=== PATIENT | female | born 1950 | race Caucasian/White ===

== ENCOUNTER 2018-07-18 08:13 | Inpatient (IN) ==
[~2018-07-18 08:13] MED LIST: MORPHINE SULFATE 15 MG TABLET.SA PO PRN; TRANEXAMIC ACID 1,000 MG in NORMAL SALINE 100 ML IV PRN; ceFAZolin SODIUM 1 GM VIAL IV PRN
[2018-07-18] MEDS: RINGER'S SOLUTION,LACTATED 1,000 ML IV PRN ×2 (09:34→12:35)
--- NOTE | 2018-07-18 11:17 | ANES ---
Anesthesia Pre Procedure Eval Vitals/Labs: Last Vital Signs Temp 36.7 C 07/18/18 08:38 Pulse 69 07/18/18 08:38 Resp 18 07/18/18 08:38 BP 161/70 H 07/18/18 08:38 Pulse Ox 100 07/18/18 08:38 HOME MEDICATIONS Cyanocobalamin (Vitamin B-12) [Vitamin B-12] 500 mcg PO DAILY 01/11/15 [Last Taken 07/17/18] Fexofenadine HCl [Radha Allergy] 180 mg PO HS 01/11/15 [Last Taken 07/17/18] Multivitamins [Multivitamin Joslyn] 1 cap PO DAILY 01/11/15 [Last Taken 07/17/18] Albuterol Sulfate [Ventolin HFA] 2 puff IH Q4H PRN 06/08/17 [Last Taken Unknown] metoprolol succinate ER 25 mg tablet,extended release 24 hr 25 mg PO DAILY #90 tab 10/07/17 [Last Taken 07/18/18] carbamazepine 100 mg chewable tablet See Rx Instructions .ROUTE .COMPLEX #90 tab 11/24/17 [Last Taken 07/17/18] venlafaxine ER 150 mg capsule,extended release 24 hr 300 mg PO DAILY #180 cap 04/04/18 [Last Taken 07/17/18] bupropion HCl XL 300 mg 24 hr tablet, extended release 300 mg PO QAM #90 tab 04/08/18 [Last Taken 07/17/18] lorazepam 2 mg tablet 2 mg PO TID PRN #270 tab 05/06/18 [Last Taken 07/17/18] levothyroxine 100 mcg tablet 100 mcg PO 1700 #90 tab 06/14/18 [Last Taken 07/17/18] ibuprofen 200 mg tablet 800 mg PO TID PRN tab 06/30/18 [Last Taken 08/02/17] pravastatin 40 mg tablet 40 mg PO DAILY #90 tab 07/05/18 [Last Taken 07/17/18] losartan 50 mg tablet 50 mg PO DAILY #90 tab 07/11/18 [Last Taken 07/18/18] Gabapentin [Neurontin] 2,100 mg PO DAILY 07/18/18 [Last Taken 07/17/18] Allergies/Adverse Reactions: Allergies Allergy/AdvReac Type Severity Reaction Status Date / Time erythromycin base AdvReac Mild Nausea Verified 07/06/18 10:07 [Erythromycin Base] simvastatin AdvReac Mild Muscle Pain Verified 07/06/18 10:07 [email or web address] Allergy Intermediate hives Uncoded 07/18/18 08:56 - Planned Procedure Planned Procedure: RT Arthroplasty Total Shoulder Reverse Medication List Reviewed:: Yes Allergies Verified: Yes Medical History (Updated 07/18/18 @ 08:56 by Liliana Spring, CHAVA) Major depression (Chronic) Generalized anxiety disorder (Chronic) BiPAP (biphasic positive airway pressure) dependence Wears glasses severe seasonal allergies Shoulder pain, right Allergic rhinitis Anxiety Back pain COPD (chronic obstructive pulmonary disease) Onset Date: ~2018 Carpal tunnel syndrome Cholelithiasis Depression GERD (gastroesophageal reflux disease) Gastric ulcer Headache Hernia Hyperlipidemia Hypertension Hypoglycemia Hypothyroidism Knee pain Major depressive disorder Osteoarthritis Sciatica Sinusitis, chronic Sleep apnea Candidiasis of genitalia in female Surgical History (Updated 07/18/18 @ 08:54 by Liliana Spring RN) History of deviated nasal septum History of tonsillectomy and adenoidectomy Status post left foot surgery history of rectal fistula repair History of hemiarthroplasty of left shoulder Onset Date: ~12/22/11 DR. Cooley and RCR prior to that date unknown Dr. Zimmer History of shoulder surgery Onset Date: Unknown right RCR Dr. Zimmer Carpal tunnel syndrome R side Ganglion cyst L breast H/O section H/O dilation and curettage History of appendectomy History of arthroscopic knee surgery History of nasal surgery History of rectal surgery History of total knee replacement bilateral Hx of cholecystectomy Rotator cuff injury bilateral S/P gastroplasty Family History (Last Reviewed 07/18/18 @ 11:16 by Jack Dobbins CRNA) Grandfather Arrhythmia Hyperlipemia Hypertension maternal and paternal Aunt Diabetes Hypercholesteremia Hyperlipemia Hypothyroidism Hypertension Father Diabetes Abdominal aortic aneurysm Arrhythmia Depression Heart disease Hyperlipemia Peripheral artery disease Hypertension CVA (cerebral vascular accident) Grandmother Joint disorder Alzheimers disease Hypothyroidism Hypertension maternal and paternal Mother Cataracts, both eyes Joint disorder Diabetes Arrhythmia Heart disease Hypercholesteremia Hyperlipemia Hypertension Uncle Diabetes Hypercholesteremia Hyperlipemia Hypertension Sister Graves disease Gout Hypercholesteremia Hyperlipemia Hypothyroidism Daughter Hypothyroidism Heart murmur Kidney stones Depression Anxiety Son Heart murmur Kidney stones Son Fatty liver - Family Anesthesia History Family History:: no untoward family reactions to anesthesia, no familial bleeding tendencies, no family history of clotting disorders, no family history of premature - Airway/Neck/Teeth Within Normal Limits:: Yes Teeth Condition: intact Mallampatti Score: 3 Thyromental (T-M) distance: > 6 cm Mandibulo Hyoid distance: > 3 cm - Respiratory Respiratory History: CPAP/BiPAP home use Respiratory Physical: lungs clear Smoking Status: Former smoker Discussed smoking cessation including day of surgery: No Sleep Apnea currently treated: Yes Sleep Apnea by current assessment: No Discussed Risks/Treatment of MOUSTAPHA: No - Cardiovascular Tolerate Activity: Fair Heart Sounds: S1 & S2, Regular - Anesthesia Assessment and Plan ASA Class: PS, III Anesthesia Type Plan: General LMA, Block - Right interscalene nerve block for postop analgesia
[2018-07-18] MEDS ORDERED: MORPHINE SULFATE 2 MG/ML DISP.SYRIN IV PRN (13:40)
[2018-07-18] MEDS ORDERED: ACETAMINOPHEN 500 MG TABLET PO PRN (13:40)
[2018-07-18] MEDS ORDERED: MAGNESIUM HYDROXIDE 30 ML UDC PO PRN (13:40)
[2018-07-18] MEDS ORDERED: DEXTROSE 5%-LACTATED RINGERS 1,000 ML IV PRN (13:40)
[2018-07-18] MEDS ORDERED: MAG HYDROX/ALUMINUM HYD/SIMETH 30 ML UDC PO PRN (13:40)
[2018-07-18] MEDS ORDERED: ONDANSETRON HCL/PF 2 MG/ML VIAL IV PRN (13:40)
[2018-07-18] MEDS ORDERED: ZOLPIDEM TARTRATE 5 MG TABLET PO PRN (13:40)
[2018-07-18] MEDS ORDERED: diphenhydrAMINE HCL 50 MG/ML VIAL IV PRN (13:40)
--- NOTE | 2018-07-18 13:40 | OR ---
Operative Report - Dictated Report Narrative: DATE OF PROCEDURE: 07/18/2018 PHYSICIAN: Mauricio Cooley MD CAREER SERVICES ASSISTANT: Goran Levine PA-C (provided and essential set of skilled, educated hands that assisted with transfer, positioning, prepping, draping, manipulation, retraction, placement of implants, irrigation, closure wounds, and application of dressings all which cannot be performed by the available surgical crew) PREOPERATIVE DIAGNOSIS: Right rotator cuff deficient shoulder arthrosis. POSTOPERATIVE DIAGNOSIS: Right rotator cuff deficient shoulder arthrosis. OPERATIONS AND PROCEDURES: Right reverse total shoulder arthroplasty. ANESTHESIA: General plus regional. COMPLICATIONS: None. DRAINS: None. SPECIMENS: Bone. ESTIMATED BLOOD LOSS: 100 mL. RETAINED IMPLANTS: 1. DePuy Delta Xtend cementless metaglene. 2. Delta Xtend glenosphere, 38 mm standard. 3. Delta Xtend size 12 modular humeral LEVY-coated cementless stem. 4. Size 1 right modular eccentric epiphysis LEVY-coated cementless. 5. Delta Xtend standard polyethylene size 38 plus 9 mm. 6. Metaglene locking screws, 42 mm and 36 mm in length. 7. Nonlocking metaglene screws, 18 mm x 2 . INDICATIONS FOR PROCEDURE: Mrs. Napoles is a 67-year-old male with significant past history of rotator cuff tears and shoulder pain with arthrosis. She had treated these conservatively and had an irreparable rotator cuff with some progression of arthrosis of the shoulder and difficulty with activities of daily living in pain. She was seen in clinic and had failed conservative measures. She wished to proceed with surgical treatment. The risks, benefits, and alternatives were discussed in clinic, including the risk of , blood clots, bleeding, infection, nerve/tendon/blood vessel injury, malposition of components, failure of components, wear or limited range of motion, stiffness, and need for additional procedures, and she wished to proceed. Consent was obtained here in the clinic. DESCRIPTION OF PROCEDURE: After marking the correct extremity in the preoperative holding area, the patient was taken to the operating room. A timeout was performed. IV antibiotics consisting of Ancef were administered prior to procedure. The regional followed by general anesthetic was induced by the nurse ships equipment engineer at my request. She was then transitioned to beach chair position with all bony prominences well padded. The head in neutral, legs with SCDs and supported,and the nonoperative arm supported. The surgical arm was prescrubbed with alcohol then prepped and draped in the standard sterile fashion and the skin was covered with ioban. A deltopectoral incision was made and blunt dissection was carried down through the skin. The cephalic vein was identified, protected, and retracted. We then went through the deltopectoral interval, exposing the proximal humerus. It was noted that there was no rotator cuff, supraspinatus and infraspinatus tendon, or teres minor tendon. The subscapularis was intact as well as the biceps. A tag suture was placed in subscapularis tendon as well as the anterior capsule, and this was elevated off the anterior humerus passing along the bicipital groove and into the rotator cuff interval, exposing the proximal humerus. This was then freed off the proximal humerus. A biceps tenotomy was performed and the shoulder was dislocated. The humeral head was noted to show signs of arthrosis. Next, an entry drill was placed down the humerus centered on the longitudinal axis entering off just onto the articular surface on the humeral head. Next were serial reamers up to the size 12 were utilized, which gave good overall cortical contact. Next, a proximal humeral head cut was performed. We made the cut at approximately 20 degrees of retroversion. This appeared to resect an appropriate amount of humeral head. This was then pinned into place and an oscillating saw was utilized to cut this humeral head, protecting the surrounding soft tissues. We then placed a cap over the proximal humerus and turned our attention to the glenoid. The soft tissues were then elevated off the humeral neck as well as circumferentially around the glenoid. The glenoid was exposed. The remaining biceps tendon and labrum were resected. Using tractors, the glenoid was exposed and a guidewire was placed just posterior and inferior to the center of the glenoid. This was made so that it directed slightly superiorly but otherwise perpendicular to the glenoid on the axillary plane. Protecting the surrounding soft tissues, a reamer was utilized in order to remove the remaining cartilage. A knit goods press hand was utilized in order to resect the superior cartilage, and this resulted in a good overall appearance of the glenoid. The center drill lug hole was drilled and had good circumferential bone. The metaglene was then impacted into place and oriented for placement of screws along the mid plane in the superior and inferior quadrants of the glenoid as well as anterior to posterior screws. These were drilled and had appropriate overall length of screws on the superior and inferior metaglene screws. Good purchase was obtained with a 36 mm screw superiorly and 42 mm screw inferiorly. The anterior and posterior screws were drilled and 18 mm anterior and 18mm posterior nonlocking screws were placed. We then locked the superior and inferior screws into place. This gave good overall compression down to the glenoid with flat overall appearance and an appropriate alignment. We returned our attention to the proximal humerus. The proximal humeral reaming guide was placed for an eccentric reamer. This was utilized in order to prepare the proximal humerus. The trial stem was assembled on the back table and impacted into place. After placing the trial stem, we then returned to the metaglene. The glenosphere was then secured to the metaglene, impacted, and t ightened ensuring that this was seated completely. We then returned to the humeral component and placed the trials of polyethylene inserts and found that the 9mm gave good overall longitudinal traction with no gapping. The shoulder was able to reach 140 degrees of forward flexion and 120 degrees of abduction, external rotation was to 80 degrees, internal rotation of 40, and with fulcrum in the armpit were unable to hinge the joint out of place, and there was no essentially no gapping of the polyethylene off the humeral head nor any signs of impingement on the glenoid neck. We felt that these were the appropriately placed and sized implants. We then dislocated the shoulder, removed the trial implants, thoroughly irrigated the humerus, impacted the final implants into place in the prior determined retroversion with the resected humeral head as bone graft. The trial polyethylene was utilized again and was noted that the actual stem and the trial stem were equal in tension, and thus the final polyethylene was impacted into place. The shoulder was reduced, again noted to be stable, was then thoroughly irrigated. The subscapularis and was secured to the surrounding soft tissues using bone tunnels with #1 Ethibond suture. The deltopectoral interval was closed with #0 Vicryl. The deep tissues were then closed with #0 Vicryl, subcutaneous with 3-0 Monocryl, and the skin with s taples. Xeroform, 4 x 4, ABD, soft roll, and full arm Baudilio was applied. The patient was placed in a shoulder sling, awoken, and transferred to postanesthesia care in stable condition. All sponge, needle, and instrument counts were correct prior to closing the wounds. We will obtain postoperative films and be admitted to the floor for postoperative pain control, IV antibiotics, and starting of physical therapy. I anticipate a one to two night hospital stay.
[2018-07-18] MEDS ORDERED: ALBUTEROL SULFATE 2.5 MG/0.5 ML VIAL.NEB IH PRN (13:42)
[2018-07-18] MEDS ORDERED: carBAMazepine 100 MG TAB.CHEW PO SCH ×2 (13:45→21:00)
--- NOTE | 2018-07-18 13:55 | ANES ---
Post Anesthesia Discharge - Transfer of Care Transfer of Care handoff given to nurse: Yes - Discharge from PACU Discharge from PACU when meets criteria: Yes - Discharge to ASU Discharge to ASU-no complications/pt stable: Yes
--- NOTE | 2018-07-18 14:00 | ANES ---
Anesthesia Procedure Note Procedure Note: ANESTHESIA PROCEDURE NOTE Date of Procedure: 07/18/2018. Time of procedure: 1120. Performed by: Jack Dobbins CRNA Marketing Pr Intern: None. Preprocedure diagnosis: Right rotator cuff deficient shoulder arthrosis. Post procedure diagnosis: Same. Procedure: Right ultrasound guided interscalene nerve block for postoperative analgesia. Indications: The patient is a 67-year-old female, requesting right ultrasound- guided interscalene nerve block for postoperative analgesia related to right reverse total shoulder arthroplasty. Findings: See below. Details of the procedure: The tissue over the intended target site was cleansed with ChloraPrep. 1 ml Lidocaine 1 % was infiltrated to the skin and sub cutaneous tissue. Under sterile technique and ultrasound guidance a 22-gauge block needle was inserted to the right brachial plexus nerve bundle between the anterior scalene and the middle scalene muscles. 30 mL's of 0.5% bupivacaine plus epinephrine 1:200,000 was injected after negative aspiration for blood. Needle tip and spread of local anesthetic around the brachial plexus was observed throughout the injection with realtime ultrasound visualization. The needle was removed intact. No complications were noted. The images were retained in the hospital medical database. EBL: Minimal. Fluids: N/A. Specimen: N/A. Post procedure condition: The patient tolerated the procedure well. No complications were noted. Thank you for this consultation. Jack Dobbins CRNA
[2018-07-18] MEDS: KETOROLAC TROMETHAMINE 15 MG/ML VIAL IV SCH ×2 (15:09→20:39)
--- NOTE | 2018-07-18 15:37 | ANES ---
Post Anesthesia Assessment - Vital Signs Vitals: Last Vital Signs Temp 36.5 C 07/18/18 14:37 Pulse 78 07/18/18 15:31 Resp 16 07/18/18 15:31 BP 120/66 07/18/18 15:31 Pulse Ox 98 07/18/18 15:31 Airway Patency: Normal - Mental Status Level Of Consciousness: Awake - Pain Level Pain Score: 4 - N/V Assessment Nausea/Vomiting Presence: None Dehydration:: No
[2018-07-18] MEDS: oxyCODONE HCL/ACETAMINOPHEN 1 TAB TABLET PO PRN ×2 (16:00→23:21)
[2018-07-18] MEDS: ceFAZolin SODIUM 1 GM in DEXTROSE 5 % IN WATER 100 ML IV SCH ×4 (16:03→22:31)
[2018-07-18] MEDS ORDERED: LEVOTHYROXINE SODIUM 100 MCG TABLET PO SCH (17:00)
[2018-07-18] MEDS: MORPHINE SULFATE 15 MG TABLET.SA PO SCH (20:36)
[2018-07-18] MEDS: GABAPENTIN 600 MG TABLET PO SCH (20:38)
[2018-07-18] MEDS ORDERED: SENNOSIDES/DOCUSATE SODIUM 1 TAB TABLET PO SCH (21:00)
[2018-07-18] MEDS ORDERED: LORATADINE 10 MG TABLET PO SCH (21:00)
[2018-07-18] MEDS: LORazepam 1 MG TABLET PO PRN (23:13)
[2018-07-19] MEDS: ceFAZolin SODIUM 1 GM in DEXTROSE 5 % IN WATER 100 ML IV SCH ×2 (03:23)
[2018-07-19] MEDS: KETOROLAC TROMETHAMINE 15 MG/ML VIAL IV SCH ×2 (03:24→08:48)
[2018-07-19 05:50] LABS: Hematocrit 33.8 % (37.0-47.0); Hemoglobin 10.7 gm/dL (12.5-16.0); Mean Cell Volume 98.3 fl (78-100); Mean Corpuscular Hemoglobin 31.1 pg (27-31); Mean Corpuscular Hgb Conc 31.7 g/dl (32-36); Mean Platelet Volume 9.8 fl (8-12.5); Platelet Count 219 K/mm3 (150-450); Red Blood Count 3.44 M/mm3 (4.2-5.4); White Blood Count 7.4 K/mm3 (4.0-10.5)
[2018-07-19 05:52] LABS: Anion Gap 10.9 mmol/L (6.8-13.8); BUN/Creatinine Ratio 21.1 (9.0-21.6); Calcium * 8.5 mg/dL (7.9-10.9); Carbon Dioxide 30.2 mmol/L (24-32.6); Estimated Creat Clear 76.1; Potassium 4.1 mmol/L (3.4-4.6)
[2018-07-19] MEDS: oxyCODONE HCL/ACETAMINOPHEN 1 TAB TABLET PO PRN ×2 (06:27→11:39)
[2018-07-19] MEDS: MORPHINE SULFATE 15 MG TABLET.SA PO SCH (08:45)
[2018-07-19] MEDS: GABAPENTIN 600 MG TABLET PO SCH (08:47)
[2018-07-19] MEDS ORDERED: METOPROLOL SUCCINATE 25 MG TABLET.SA PO SCH (09:00)
[2018-07-19] MEDS ORDERED: VENLAFAXINE HCL 150 MG CAP.SR.24H PO SCH (09:00)
[2018-07-19] MEDS ORDERED: LOSARTAN POTASSIUM 50 MG TABLET PO SCH (09:00)
[2018-07-19] MEDS ORDERED: Pravastatin Sodium 40 MG PO SCH (09:00)
[2018-07-19] MEDS ORDERED: buPROPion HCL 150 MG TAB.SR.24H PO SCH (09:00)
[2018-07-19] MEDS ORDERED: carBAMazepine 100 MG TAB.CHEW PO SCH (09:00)
[2018-07-19] MEDS ORDERED: GABAPENTIN 600 MG TABLET PO SCH (09:00)
[2018-07-19] MEDS ORDERED: CYANOCOBALAMIN 1,000 MCG TABLET PO SCH (09:00)
[2018-07-19] MEDS ORDERED: MULTIVITAMINS 1 CAP CAPSULE PO SCH (09:00)
[2018-07-19] MEDS: LORazepam 1 MG TABLET PO PRN (11:39)
[2018-07-19] MEDS ORDERED: GABAPENTIN 300 MG CAPSULE PO SCH (12:00)
--- NOTE | 2018-07-19 12:00 | DS ---
(1) Status post reverse total arthroplasty of right shoulder Problem: Acute (2) GERD (gastroesophageal reflux disease) Problem: Chronic (3) Generalized anxiety disorder Problem: Chronic (4) HLD (hyperlipidemia) Problem: Chronic Qualifiers: (5) HTN (hypertension) Problem: Chronic Qualifiers: (6) Hypothyroidism Problem: Chronic Qualifiers: (7) Major depression Problem: Chronic Qualifiers: (8) Morbid obesity due to excess calories Problem: Chronic (9) Neuropathy Problem: Chronic (10) MOUSTAPHA on CPAP Problem: Chronic (11) Shoulder pain, right Problem: Chronic Qualifiers: (12) Acute blood loss anemia Problem: Acute Description of Stay: Mrs. Napoles was admitted to the floor after undergoing right reverse total shoulder arthroplasty. Tolerated this well. Was admitted to the floor postoperatively for 24 hours of IV antibiotics, pain control, medical comanagement, and occupational and physical therapy. OT and PT were consulted to assist with activities of daily living and ambulation. Was made non- weightbearing with range of motion limited to post-op protocol. Pain was initially controlled with IV regimen. This was transitioned to oral once tolerating a by mouth intake. Was resumed on home diet and medications. Aspirin SCD and CATYH hose were utilized for DVT prophylaxis. Vital signs remained stable to the hospital course. Serial labs were obtained which showed a final hemoglobin of 10.7 grams. BMP was reviewed and was stable. Physical examination throughout the hospital course showed an extremity that had sensation that was intact to light touch, palpable pulses, a benign wound, motor intact to the wrist and hand. Once an oral pain regimen was tolerated and physical therapy goals were met, it was felt that they were stable for discharge to home. Instructions: Continue with non-weightbearing and range of motion limited to external rotation. Keep wound dry. Do not bathe or soak the wound. If there is any drainage from the wound keep the wound clean and dry and cover with dry gauze and tape. Change every 2-3 days as needed if there is any drainage. Cover wound while showering. Use tubagrip to arm. Continue with physical therapy. Resume home diet. Report any fever over 101.5 Fahrenheit, uncontrolled pain, increased drainage, foul odor of drainage, new or increased calf pain or shortness of breath, or any other significant complaints. A 325mg twice dialy aspirin will be continued. No driving until instructed otherwise. Follow up in approximately 10-14 days. Procedures Performed: see notes below List Procedures: Right reverse total shoulder arthroplasty Results and Findings: Lab Pending Results 07/19/18 05:41: WBC 7.4, RBC 3.44 L, Hgb 10.7 L, Hct 33.8 L, MCV 98.3, MCH 31.1 H, MCHC 31.7 L, RDW 12.0, Plt Count 219, MPV 9.8 07/19/18 05:41: Sodium 136, Plasma Sodium 136, Potassium 4.1, Chloride 99, Carbon Dioxide 30.2, Anion Gap 10.9, BUN 12, Creatinine 0.57, Est GFR (Non-Af Amer) 113, BUN/Creatinine Ratio 21.1, Random Glucose 110, Calcium 8.5 Disposition: Home self-care Condition: Good Discharge Activity: Non-Weight bearing, Other - motion limited per protocol Discharge Diet: General/regular food Referrals: Naveed Sadler MD [Primary Care Provider] - Additional Patient Instructions (free text): Follow up Physical Therapy at [facility] rehab on 07/21/18 at 11:30. Follow up Orthopedic office appt. on Wednesday08/02/18 at 1:15pm. Prescriptions (Any new or edited meds): Morphine Sulfate [Ms Contin] 15 mg PO Q12H #10 tablet.sa oxyCODONE HCL/ACETAMINOPHEN [Percocet 5 MG/325 MG] 2 tab PO Q4H PRN #60 tab PRN Reason: Moderate Pain (Pain Scale 4-6) Complete Home Medications List: Complete Home Medication List: Cyanocobalamin (Vitamin B-12) [Vitamin B-12] 500 mcg PO DAILY 01/11/15 Fexofenadine HCl [Radha Allergy] 180 mg PO HS 01/11/15 Multivitamins [Multivitamin Joslyn] 1 cap PO DAILY 01/11/15 Albuterol Sulfate [Ventolin HFA] 2 puff IH Q4H PRN 06/08/17 metoprolol succinate ER 25 mg tablet,extended release 24 hr 25 mg PO DAILY #90 tab 10/07/17 carbamazepine 100 mg chewable tablet See Rx Instructions .ROUTE .COMPLEX #90 tab 11/24/17 venlafaxine ER 150 mg capsule,extended release 24 hr 300 mg PO DAILY #180 cap 04/04/18 bupropion HCl XL 300 mg 24 hr tablet, extended release 300 mg PO QAM #90 tab 04/08/18 lorazepam 2 mg tablet 2 mg PO TID PRN #270 tab 05/06/18 levothyroxine 100 mcg tablet 100 mcg PO 1700 #90 tab 06/14/18 ibuprofen 200 mg tablet 800 mg PO TID PRN tab 06/30/18 pravastatin 40 mg tablet 40 mg PO DAILY #90 tab 07/05/18 losartan 50 mg tablet 50 mg PO DAILY #90 tab 07/11/18 Gabapentin [Neurontin] 2,100 mg PO DAILY 07/18/18 Morphine Sulfate [Ms Contin] 15 mg PO Q12H #10 tablet.sa 07/19/18 oxyCODONE HCL/ACETAMINOPHEN [Percocet 5 MG/325 MG] 2 tab PO Q4H PRN #60 tab 07/19/18 Amb Orders for Discharge: PT Evaluation and Treatment* Facility: [facility], Location: Rehabilitation Services
[2018-07-19 14:40] VITALS: BP 123/59
[2018-07-20] MEDS ORDERED: ASPIRIN 325 MG TABLET.DR PO SCH (21:00)
== END 2018-07-19 14:15 | disposition home or self-care (01) | DRG 483 ==
LOC: MS 08:13
PROVIDERS: ADMIT Orthopaedic Surgery; ATTEND Orthopaedic Surgery
DX: F41.1 Generalized anxiety disorder; J44.9 Chronic obstructive pulmonary disease, unspecified; E66.01 Morbid (severe) obesity due to excess calories; F32.9 Major depressive disorder, single episode, unspecified; G47.33 Obstructive sleep apnea (adult) (pediatric); I10 Essential (primary) hypertension; K21.9 Gastro-esophageal reflux disease without esophagitis; D62 Acute posthemorrhagic anemia; M75.122 Complete rotator cuff tear or rupture of left shoulder, not specified as traumatic; E78.5 Hyperlipidemia, unspecified; E03.9 Hypothyroidism, unspecified; Z68.41 Body mass index [BMI] 40.0-44.9, adult; M19.011 Primary osteoarthritis, right shoulder
CPT/HCPCS: 36415; 73030; 80048; 85027; 94660; 97110; 97116; 97161; 97165; 97530; 97535; J2405